=== PATIENT | male | born 1940 | race Caucasian/White ===

== ENCOUNTER 2018-12-06 14:37 | Emergency (ER) | payer MEDICARE, BC ==
[~2018-12-06] VITALS: Ht 180.3 cm; Wt 78.9 kg
--- NOTE | 2018-12-07 23:03 | EKG ---
[facility] [address] [facility] [place] [address] Signed Sinus tachycardia with 1st degree AV block Nonspecific T wave abnormality Abnormal ECG Confirmed by AYLIN MCCLAIN MD ([id number]) on 12/07/2018 11:03:05 PM Electronically Signed By: AYLIN MCCLAIN MD 12/07/18 2303 PATIENT NAME: [facility] Electrocardiogram DATE OF : 40 PHYSICIAN: AYLIN MCCLAIN MD REPORT #: [id number] REPORT IS CONFIDENTIAL AND NOT TO BE RELEASED WITHOUT AUTHORIZATION
== END 2018-12-06 18:45 | disposition home or self-care (01) ==
LOC: ED 14:37 → EDBD 14:40 → ED 18:45
PROC: 0T2BX0Z Change Drainage Device in Bladder, External Approach (ICD-10-PCS; principal; 2018-12-06)
DX: R50.9 Fever, unspecified (principal); Z95.5 Presence of coronary angioplasty implant and graft; Z87.891 Personal history of nicotine dependence; Z88.5 Allergy status to narcotic agent
CPT/HCPCS: 51702; 70450; 71045; 80053; 81001; 83605; 85025; 93005; 93010; 99285-25; J0696